=== PATIENT | female | born 1960 | race Caucasian/White ===

== ENCOUNTER 2016-05-01 21:18 | Emergency (ER) | payer SELFPAY ==
[2016-05-01 21:27] VITALS: TEMP 36.7; Ht 157.5 cm
[2016-05-01] MEDS ORDERED: OXYCODONE HCL IR 5 MG TAB (IMMEDIATE RELEASE) PO STA (22:18)
[2016-05-01] MEDS ORDERED: LEVO50TA PO (22:22)
[2016-05-01] MEDS ORDERED: MULT-513 PO (22:22)
--- NOTE | 2016-05-01 22:44 | DIAGNOSTIC IMAGING REPORT ---
LEFT KNEE 2 VIEWS CLINICAL HISTORY: Fall with left knee pain. FINDINGS: AP and crosstable lateral views of the left knee are obtained. No prior studies are available for comparison at the time of dictation. The skeletal structures appear osteopenic. There is a fracture through the mid pole of the patella with approximately 3.5 cm of distraction of the fragments. There is rotation of the inferior fragment. There is lipohemarthrosis and marked overlying soft tissue edema. No additional fracture is seen. The joint spaces of the medial and lateral compartment appear preserved. There are small lateral marginal osteophytes. A calcified fabella is incidentally noted. IMPRESSION: There is a distracted fracture through the mid pole of the patella with associated lipohemarthrosis and marked soft tissue edema as above. Electronically signed by: Arnold Mistry M.D. 05/01/2016 10:42 PM Dictated Date/Time: 05/01/2016 10:41 PM
[2016-05-01] MEDS ORDERED: OXYC1TAB3 PO (23:12)
[2016-05-01] MEDS ORDERED: OXYCODONE IR HOME PACK PO ONE (23:15)
[2016-05-01 23:25] VITALS: BP 103/57; PULSE 70; O2SAT 97
--- NOTE | 2016-05-02 00:04 | EMERGENCY ROOM VISIT NOTE ---
ED Visit Note First contact with patient: 21:42 CHIEF COMPLAINT: knee pain HISTORY OF PRESENT ILLNESS: This 56 yo patient presents to the emergency department with family who is Tristanian-speaking and requested that her granddaughter translates after sustaining an injury to the left knee after falling at [employer]. The patient denies any other injuries besides their knee. The patient + swelling or bruising. There is pain throughout the knee. They rate the pain as severe and 8/10. The patient states they are not able to walk on it. No numbness or tingling. No previous injuries to this knee. No ankle, foot or hip pain. REVIEW OF SYSTEMS: A 6 system review of systems was completed with positives and pertinent negatives listed in the HPI. ALLERGIES: none MEDICATIONS: Synthroid PMH: Thyroid disease SOCIAL HISTORY: No drug use PHYSICAL EXAM: Vital Signs: Reviewed Nurse's notes, vital signs stable. GENERAL : Pleasant female, no acute distress, but appears in pain, well-developed, well- nourished. MENTAL STATUS: Alert, oriented to person place and time, and cooperative. MUSCULOSKELETAL: The left knee is swollen. There is ecchymosis. There is joint effusion present. The patient is tender diffusely. There is joint line tenderness. Range of motion is limited to pain and obvious injury. Strength of the quads and hamstrings is unable to assess secondary to pain. Bartolo's and Anterior Drawer tests are unable to assess secondary severe injury. The foot and toes are warm and well-perfused. Dorsalis pedis pulse 2+. Sensation to pain and light touch is intact. Capillary refill less than 2 seconds. EMERGENCY DEPARTMENT COURSE: I examined the patient. X-rays of the left knee were reviewed by myself and read by radiology and reveal LEFT KNEE 2 VIEWS CLINICAL HISTORY: Fall with left knee pain. FINDINGS: AP and crosstable lateral views of the left knee are obtained. No prior studies are available for comparison at the time of dictation. The skeletal structures appear osteopenic. There is a fracture through the mid pole of the patella with approximately 3.5 cm of distraction of the fragments. There is rotation of the inferior fragment. There is lipohemarthrosis and marked overlying soft tissue edema. No additional fracture is seen. The joint spaces of the medial and lateral compartment appear preserved. There are small lateral marginal osteophytes. A calcified fabella is incidentally noted. IMPRESSION: There is a distracted fracture through the mid pole of the patella with associated lipohemarthrosis and marked soft tissue edema as above. Electronically signed by: Arnold Mistry M.D. 05/01/2016 10:42 PM I consulted with orthopedics, Dr. Cam, and recommends knee immobilizer, nonweightbearing and will see the patient tomorrow in clinic. He recommends discharge home. The patient was placed in a knee immobilizer under my direction and the position was satisfactory. The patient was instructed on the use of crutches. Patient was advised that she needs to see orthopedics tomorrow for her extensive knee injury. Patient had no other injuries noted. She had no other complaints. She was neurovascularly and neurologically intact. The patient was discharged home in good condition. DIAGNOSIS: Left patella fracture, fall DISCHARGE INSTRUCTIONS: As below Current/Historical Medications Scheduled Levothyroxine Sodium (Synthroid), 50 MCG PO DAILY Multivitamins/Minerals (Mvi With Minerals), 1 TAB PO DAILY Scheduled PRN Oxycodone Immediate Rel Tab (Roxicodone Ir), 1-2 TAB PO Q4H PRN for Severe Pain Allergies Coded Allergies: No Known Allergies (Unverified Allergy, Mild, 03/12/08) Vital Signs Date Time Temp Pulse Resp B/P Pulse Ox O2 Delivery O2 Flow Rate FiO2 05/01/16 23:25 70 18 103/57 97 05/01/16 21:27 36.7 80 18 139/76 100 Room Air Medications Administered Medications (Trade) Dose Ordered Sig/Janel Route Start Time Stop Time Status Last Admin Dose Admin Oxycodone HCl (Roxicodone Immediate Rel Tab) 5 mg NOW STAT PO 05/01/16 22:18 05/01/16 22:19 DC 05/01/16 22:34 5 MG Oxycodone HCl (Roxicodone Immediate Rel 5MG Home Pack) 1 homepack UD ONCE PO 05/01/16 23:15 05/01/16 23:16 DC 05/01/16 23:39 1 HOMEPACK Departure Information Impression Primary Impression: Fracture of patella, left, closed Additional Impression: Fall Dispostion Home / Self-Care Condition GOOD Prescriptions Oxycodone Immediate Rel Tab (ROXICODONE IR) 5 Mg Tab 1-2 TAB PO Q4H Y for Severe Pain, #20 TAB Prov: Shanae De Santiago ., BETHANIE 05/01/16 Referrals Dwaine Cam D.O. Forms HOME CARE DOCUMENTATION FORM, Work Instructions, Return To Work: 2 days IMPORTANT VISIT INFORMATION Patient Instructions My [facility], ED Fx Patella Additional Instructions DO NOT drive, drink alcohol, operate machinery, or perform dangerous activities today. You were given medications in the ER that can affect your ability to safely function or operate a vehicle. Oxycodone (OxyIR) 5mg: Take 1-2 pills every four hours for breakthrough pain. Avoid alcohol, operating machinery or dangerous equipment, working on ladders or roofs, DRIVING, or situations where being under the influence may be dangerous. It is recommended to use an nhna-dzn-vihhdwq stool softener such as Colace, 100mg twice daily while taking this medication to avoid constipation. NO MOTRIN or any NSAIDs until cleared by ORTHO. Acetaminophen(Tylenol) may be used for fever or pain. Use 1000mg every six hours as needed. Avoid using more than 3000mg in a 24 hour period. This medication can be taken if you need to drive, work, or perform activities which may be dangerous when taking narcotic pain medication. Ice compresses for 20 minutes at a time four times daily for 2-3 days. Use the crutches as instructed. REMAIN NONE WEIGHT BEARING UNTIL CLEARED BY ORTHO. Rest and elevate your injury. Wear knee immobilizer. Do not have it so tight that cannot feel your foot. Continue current medications. Return to the ER immediately for any numbness, tingling, severe pain, extreme swelling in the extremity or as needed. Call Orthopedics tomorrow to arrange follow up for your injury. Work Instructions Return To Work: 2 days
== END 2016-05-01 23:25 | disposition home or self-care (01) ==
LOC: C.EDB 21:19 → C.EDD 23:25
DX: S82.002A Unspecified fracture of left patella, initial encounter for closed fracture (principal); W19.XXXA Unspecified fall, initial encounter; Y92.512 Supermarket, store or market as the place of occurrence of the external cause; E07.9 Disorder of thyroid, unspecified; Z79.899 Other long term (current) drug therapy

== ENCOUNTER 2016-05-08 09:30 | Observation (INO) | payer SELFPAY ==
--- NOTE | 2016-05-03 13:52 | HISTORY & PHYSICAL EXAMINATION ---
DATE OF ADMISSION: 05/08/2016 CHIEF COMPLAINT: Left knee pain. HISTORY OF PRESENT ILLNESS: Maritza is a 56-year-old female patient of Dr. Chopra that sustained an injury to her left knee after falling directly on her anterior aspect of her left knee. She has never injured this extremity in the past. She admits to pain, swelling and inability to perform a straight leg raise. Denies any numbness or tingling in her foot. Denies any calf pain. PAST MEDICAL HISTORY: Hypothyroidism. PAST SURGICAL HISTORY: 1. Cholecystectomy. 2. Ectopic . 3. Peritonitis as an infant requiring surgical intervention. FAMILY HISTORY: Noncontributory. SOCIAL HISTORY: The patient lives at home in a safe environment. She does not speak Estonian very well. She did require a family friend and company controller today during today's history and physical preoperatively. She denies any alcohol, tobacco or illegal drug use. MEDICATIONS: Levothyroxine 50 mcg daily. ALLERGIES: No known drug allergies. REVIEW OF SYSTEMS: The patient denies headache, chest pain, shortness of breath, fevers, chills or night sweats. PHYSICAL EXAMINATION: GENERAL: The patient is alert and oriented x3 female. She is in no acute distress, pleasant, appears her currently stated age. CARDIAC: Regular rate and rhythm. S1 greater than S2. No murmurs, rubs or gallops appreciated. RESPIRATORY: Lungs are clear to auscultation bilaterally all lung rosario. No rales, rhonchi or wheezing. GASTROINTESTINAL: Abdomen is soft, nontender, nondistended. Normoactive bowel sounds all 4 quadrants. SKIN: Exam of the patient's left knee reveals significant amount of swelling over the anterior aspect of the left knee, there is some minor ecchymotic change surrounding the joint as well. There is no significant openings in the skin or erythema. Several small abrasions that are not full thickness or currently draining. NEUROVASCULAR: Distal pulses of the left lower extremity are +2. Capillary refill is under 2 seconds. Has good sensation with light touch. Toes freely mobile. +5 strength with dorsi and plantar flexion. MUSCULOSKELETAL: The left knee, the patient has notable deformity and tenderness when palpating over the patella. There is a large defect when palpating the mid body of the patella. She is unable to perform a straight leg raise secondary to her compromised extensor mechanism, although patient is guarding. She overall appears to have stable cruciate and collateral ligaments. The joint lines are overall nontender. She does not have any cystic changes or masses in the popliteal fossa. Her hip and ankle are atraumatic. Calf is supple, nontender. RADIOGRAPHS: The patient's left knee reveals a transverse fracture of the mid body of the patella of the left knee, is noted on AP and more so better on lateral view. No other significant degeneration or pathology of the left knee otherwise. IMPRESSION: Left patella fracture. PLAN: Maritza will undergo an open reduction and internal fixation of her left patella fracture on 05/08/2016 at the [facility] by Dr. Hudson from [facility]. She will obtain a preoperative EKG, CBC, and PRP at [facility]'s outpatient lab on 05/03/2016. Maritza will begin utilizing Lovenox 40 mg injection subcutaneously daily until the day of her surgery for DVT prophylaxis. She was also given a prescription for Percocet for postoperative pain control. The patient already has crutches and is well aware of how to use these. The patient will utilize a knee immobilizer. She can bear weight in full extension regarding the left lower extremity. Maritza will follow up with Dr. Hudson 2 weeks after surgery for postoperative evaluation and suture removal. Will continue with DVT prophylaxis postoperatively. Ice and elevate accordingly. Physical therapy will begin 4-5 days after surgery and an order was provided. Any other questions or concerns, notify [facility] at [phone]. [facility]
[2016-05-03 16:15] VITALS: BMI 22.0
[~2016-05-08] VITALS: Ht 157.5 cm; Wt 56.4 kg
[~2016-05-08 09:30] MED LIST: CEFAZOLIN 1000MG/55 ML D5W 55 ML IV SCH; LACTATED RINGER'S 1000ML IV SCH; LEVO50TA PO; MULT-513 PO
[2016-05-08 09:47] VITALS: BP 114/74; PULSE 91; TEMP 36.7; O2SAT 97; Ht 157.5 cm; Wt 56.4 kg
[2016-05-08] MEDS ORDERED: HYDROmorphone INJ 2 MG/ML SYR/VIAL IV PRN (14:45)
[2016-05-08] MEDS ORDERED: EpHEDrine SULFATE INJ 50 MG/ML AMP IV PRN (14:45)
[2016-05-08] MEDS ORDERED: PHENYLEPHRINE 100MCG/ML 5ML SYR IV PRN (14:45)
[2016-05-08] MEDS ORDERED: ONDANSETRON INJ 2 MG/ML 2 ML VIAL IV PRN ×3 (14:45→20:00)
[2016-05-08] MEDS ORDERED: ATROPINE SULFATE 0.1 MG/ML 5ML SYR IV PRN ×2 (14:45→18:00)
--- NOTE | 2016-05-08 14:53 | History & Physical Bridge Note ---
H&P Re-Evaluation Bridge Note: I have examined the patient, reviewed the History & Physical and in the interval since the performance of the History & Physical I have noted the following changes of clinical significance: No changes noted
[2016-05-08] MEDS ORDERED: KETOROLAC TROMETHAMINE 30 MG/ML VIAL IV. PRN ×2 (18:00→20:00)
[2016-05-08] MEDS ORDERED: MIDAZOLAM HCL 1 MG/ML 2ML VIAL ONE (18:01)
[2016-05-08] MEDS ORDERED: FENTANYL CITRATE INJ 50 MCG/1 ML 2 ML VIAL ONE (18:01)
[2016-05-08] MEDS ORDERED: ONDANSETRON INJ 2 MG/ML 2 ML VIAL ONE (18:32)
[2016-05-08] MEDS ORDERED: PROPOFOL IV EMULSION 10 MG/ML 20 ML VIAL IV ONE (18:32)
[2016-05-08] MEDS ORDERED: LIDOCAINE HCL 2% 2 ML VIAL (20MG/ML) ONE (18:32)
[2016-05-08] MEDS ORDERED: DEXAMETHASONE SOD INJ 4 MG/ML VIAL ONE (18:32)
[2016-05-08] MEDS ORDERED: LABETALOL HCL IV 5 MG/ML 20ML ONE ×2 (19:43→20:10)
--- NOTE | 2016-05-08 19:49 | DIAGNOSTIC IMAGING REPORT ---
INTRAOPERATIVE FLUOROSCOPIC IMAGES OF THE LEFT KNEE CLINICAL HISTORY: LT ORIF PATELLA COMPARISON STUDY: Left knee radiographs May 01, 2016. Fluoroscopy time: 38 seconds. FINDINGS: 4 fluoroscopic images demonstrate internal fixation of the patellar fracture with screws and wire. Fracture alignment has markedly improved and now appears near anatomic. There are no unexpected radiopaque foreign bodies. IMPRESSION: Expected findings following left patellar internal fixation. Electronically signed by: Terrance Waters M.D. 05/08/2016 7:47 PM Dictated Date/Time: 05/08/2016 7:45 PM
--- NOTE | 2016-05-08 19:54 | [facility] Post Operative Brief Note ---
Immediate Operative Summary Operative Date May 08, 2016. Pre-Operative Diagnosis Left Patella Fracture Post-Operative Diagnosis Same as preop Procedure(s) Performed orif Surgeon Dr. Hudson Textile Slitting Machine Operator Surgeon(s) Bull Hsieh PA-C Estimated Blood Loss 50ML Findings patella fracture Specimens None Drains 0 Anesthesia LMA Complication(s) None Disposition Recovery Room / PACU
[2016-05-08] MEDS ORDERED: ALUMINUM/MAGNESIUM/SIMETH (MAALOX MAX) 30 ML UDC PO PRN (20:00)
[2016-05-08] MEDS ORDERED: METOCLOPRAMIDE HCL INJ 5 MG/ML 2 ML VIAL IV PRN (20:00)
[2016-05-08] MEDS ORDERED: HYDROmorphone INJ 0.5 MG/0.5 ML SYR IV PRN (20:00)
[2016-05-08] MEDS ORDERED: LIDOCAINE/EPINEPHRINE 1% 20 ML VIAL INJ ONE (20:06)
[2016-05-08] MEDS ORDERED: BUPIVACAINE 0.5% W/EPI 1:200,000 INJ ONE (20:07)
[2016-05-08] MEDS ORDERED: LABETALOL HCL IV 5 MG/ML 20ML IV PRN (20:15)
[2016-05-08] MEDS: FENTANYL CITRATE INJ 50 MCG/1 ML 2 ML VIAL IV PRN ×2 (20:15→20:20)
[2016-05-08] MEDS ORDERED: SENNA 8.6 MG TAB PO SCH (21:00)
--- NOTE | 2016-05-08 22:03 | Anesthesiology Progress Note ---
Anesthesia Post Op Note Date & Time May 08, 2016 at 22:02 Vital Signs Pain Intensity: 1 Vital Signs Past 12 Hours Date Time Temp Pulse Resp B/P Pulse Ox O2 Delivery O2 Flow Rate FiO2 05/08/16 20:40 36.8 68 16 129/77 99 Nasal Cannula 3 05/08/16 20:30 66 16 132/84 99 Nasal Cannula 3 05/08/16 20:20 68 16 154/85 99 Nasal Cannula 3 05/08/16 20:10 72 16 150/88 100 Mask 10 05/08/16 20:00 37 70 16 147/95 100 Mask 10 Notes Mental Status: alert / awake / arousable, participated in evaluation Pt Amnestic to Procedure: Yes Nausea / Vomiting: adequately controlled Pain: adequately controlled Airway Patency, RR, SpO2: stable & adequate BP & HR: stable & adequate Hydration State: stable & adequate Anesthetic Complications: no major complications apparent
[2016-05-08] MEDS: D5W AND 1/2NSS + 20MEQ KCL 1,000 ML IV SCH (22:16)
[2016-05-08] MEDS: DOCUSATE SODIUM 100 MG CAP PO SCH (22:16)
[2016-05-08] MEDS: ASPIRIN 325 MG ECTAB PO SCH (22:17)
[2016-05-08] MEDS: OXYCODONE/ACETAMINOPHEN 5-325 TAB PO PRN (22:20)
--- NOTE | 2016-05-08 22:25 | OPERATIVE REPORT ---
DATE OF OPERATION: 05/08/2016 PREOPERATIVE DIAGNOSIS: Left knee patellar fracture. POSTOPERATIVE DIAGNOSIS: Left knee same. PROCEDURE: Left knee patellar open reduction internal fixation. SURGEON: Dr. Hudson. STADIUM MANAGER: Simon Hsieh PA-C HISTORY OF PRESENT ILLNESS: This 56-year-old white female presented with complaints of left knee pain after falling directly on to her left knee on 05/02/2016. Preoperative x-rays were obtained. The patient elected to proceed with surgical intervention after being educated about potential risks and outcomes. OPERATION: The patient was taken to the operating room where she was given general anesthetic. She was prepped and draped in the usual sterile fashion. Please see Dr. Hudson's operative report for specifics of the procedure. I was present for the entire case from initial patient positioning through final wound closure. Assistance was provided in tissue retraction, hemostasis, fracture reduction, hardware placement, and final wound closure. The patient was taken to recovery in ICU in satisfactory condition. I attest to the content of the Intraoperative Record and any orders documented therein. Any exceptio ns are noted below.
--- NOTE | 2016-05-08 22:29 | OPERATIVE REPORT ---
DATE OF OPERATION: 05/08/2016 PREOPERATIVE DIAGNOSIS: Left patella fracture. POSTOPERATIVE DIAGNOSIS: Same. PROCEDURE: ORIF left patella with screws and tension band. SURGEON: Dr. Hudson. VENEER PRODUCTION MACHINE OPERATOR: Simon Hsieh PA-C. No resident or fellow available. ANESTHESIA: General. INDICATIONS OF PROCEDURE: The patient is a 56-year-old female 1 week status post fall resulting in a left patellar fracture. This is an uncomminuted straight transverse mid patellar fracture with significant displacement. Treatment options, risks and benefits were discussed and she elected to proceed with recommended surgery. PROCEDURE IN DETAIL: Informed consent was obtained, the patient identified as Maritza Gay, she identified the operative site as the left knee and I marked it with my initials. A preop surgical time out was performed. A preop dose of IV antibiotics was given. She was taken to the operating room, positioned supine on the operating room table. A tourniquet was applied to the left thigh. The leg was prescrubbed and then prepped and draped in usual sterile fashion. DVT prophylaxis intraoperatively with mechanical devices, postoperatively with aspirin or early mobility and mechanical devices. The exam under anesthesia revealed range of motion easily 0-90. Posterior drawer intact, Bartolo was slightly lax, her cruciates were intact, the skin was intact. She had yellowish and bluish discoloration consistent with resolving ecchymosis. There was a positive skin wrinkles present. The limb was exsanguinated with the Esmarch, tourniquet inflated to 225 mmHg. A midline incision was made at about 15 cm in length. Full thickness flaps were created, the extensor mechanism was largely disrupted as were the medial and lateral retinaculum. Minor comminution and inferior lateral was removed. The fracture site was exposed and cleaning of soft tissue along its margins, hematoma was evacuated from the knee. The articular surfaces showed grade 2 chondrosis fairly diffusely, particularly over the distal fragment. There were no full-thickness defects, but at least diffuse grade 2 and 3 change, more grade 2 proximally and grade 2 and 3 distally. The fracture was then anatomically aligned based upon radiographic imaging and palpation as well as the fracture line held with a clamp. Two guidewires for the 4.5 cannulated screws were inserted distal to proximal and placed in the center of the patella at the junction of the middle and lateral thirds. Length was selected with a depth gauge. The screws were overreamed and screws of proper length were inserted and exchanged as necessary. This provided secured anatomical fixation confirmed fluoroscopically. An 18 gauge tension band wire was then passed through the screws and over the top of the patella and tightened. After ranging the knee 0-120, the knee was then retensioned. Fluoroscopic images confirmed positioning of the hardware, reduction of the fracture. Tourniquet was let down, meticulous hemostasis was performed. The retinaculum medial and lateral was repaired with interrupted #1 Vicryl. The subcutaneous tissues were closed with 2-0 Vicryl and lou on the skin. The 0.5% Marcaine and 1% lidocaine, both with epinephrine were injected into the skin. Leg was cleaned with wet and dry sponges. A soft sterile dressing was applied along with full length Bradley wrap and a knee immobilizer. The patient was then awakened from anesthesia without difficulty, taken to recovery room in stable condition. There were no specimens or complications. Counts were correct at the end of case. Blood loss was approximately 25 mL. At the conclusion of the operation, I spoke to patient's daughter by phone and informed her of my findings. The patient will be admitted to the hospital for observation overnight. She will receive IV antibiotics. She can weightbear as tolerated in a knee brace using a walker. She will see PT tomorrow and will be able to range her knee 0-60. Comfortably we could bend it to 90 after the conclusion of the operation. I attest to the content of the Intraoperative Record and any orders documented therein. Any exceptio ns are noted below.
[2016-05-09 00:42] VITALS: BP 119/73; PULSE 77; TEMP 36.8; O2SAT 100
[2016-05-09 04:00] VITALS: BP 112/73; PULSE 77; TEMP 36.4; O2SAT 100
[2016-05-09] MEDS: CEFAZOLIN IV 1,000 MG in DEXTROSE 5% 50ML 50 ML IV SCH ×2 (04:20→11:24)
[2016-05-09] MEDS ORDERED: LEVOTHYROXINE 50 MCG TAB PO SCH (06:00)
[2016-05-09 06:22] VITALS: O2SAT 100
[2016-05-09 07:04] VITALS: BP 127/81; PULSE 81; TEMP 37; O2SAT 97
--- NOTE | 2016-05-09 08:34 | Orthopedic Progress Note ---
Orthopedic Progress Note Date of Service May 09, 2016. Subjective Post OP Day: 1 Reports: feeling well, pain controlled w PO medications, Denies: SOB, calf pain , chest pain, complaints, light headedness, nausea / vomiting, using MEDICAL REVIEWER Objective calves soft nontender, N/V intact, capillary refill less than 2 sec., dressing C /D/I, incision C/D/I, A&O x3, toes mobile, CMS intact Date Time Temp Pulse Resp B/P Pulse Ox O2 Delivery O2 Flow Rate FiO2 05/09/16 07:04 37.0 81 16 127/81 97 Room Air 05/09/16 06:22 100 Room Air 05/09/16 04:00 36.4 77 16 112/73 100 Nasal Cannula 2.0 05/09/16 00:42 36.8 77 16 119/73 100 Nasal Cannula 2.0 05/09/16 00:30 Nasal Cannula 3.0 05/08/16 20:55 Nasal Cannula 3.0 05/08/16 20:40 36.8 68 16 129/77 99 Nasal Cannula 3 05/08/16 20:30 66 16 132/84 99 Nasal Cannula 3 05/08/16 20:20 68 16 154/85 99 Nasal Cannula 3 05/08/16 20:10 72 16 150/88 100 Mask 10 05/08/16 20:00 37 70 16 147/95 100 Mask 10 05/08/16 09:47 36.7 91 18 114/74 97 Room Air Assessment & Plan Assessment: Day 1 s/p ORIF of Left Patella Plan: PT/OT today (may do light ROM from 0-60 degrees) WBAT on Left LE with immobilizer and walker Ice with EZ wrap as directed DVT Prophylaxis with Lovenox, ANN stocking and SCD Dressing changed this AM Already provided with prescriptions for Lovenos, PT (at [facility] on 05/11/16 @ 11 with [facility]) and PO pain meds. Plan for discharge later today. F/u with Dr. Hudson as scheduled (05/22/16 @ 800). Will discuss findings with Dr. Hudson. Discharge Planning Discharge Planning: home with oppt Pain Management: Percocet DVT Prophylaxis: TEDs, SCDs, Lovenox Therapy: Physical Therapy, Occupational Therapy
--- NOTE | 2016-05-09 08:43 | Discharge Instructions ---
Discharge Instructions Admission Reason for Admission: Left Patella Fracture Discharge Discharge Diagnosis / Problem: ORIF Left patellar fracture Discharge Goals Goal(s): Decrease discomfort, Improve function, Increase independence Activity Recommendations Activity Limitations: as noted below Lifting Limitations: gradually increase as tolerated Exercise/Sports Limitations: until after follow-up appointment May Resume Sexual Activity: after follow-up appointment Shower/Bathe: may shower/bathe in 3 days, keep incision dry Weightbearing Status: Left weightbearing (as tolerated with use of immobilizer and walker) . Instructions / Follow-Up Instructions / Follow-Up New Medicine: * You will likely be taking one or more of these medications: 1. Lovenox - You will be on Lovenox for 3 wks after surgery to prevent blood clots. Aspirin, 81 mg is OK. 2. Percocet - Take, as directed, when you need it, every four to six hours to control your pain. 3. Colace & Senokot - Take to prevent constipation which can be caused by narcotics. These can be bought [id number] at the pharmacy * The most common side effects of pain medicine and iron are nausea and constipation. If nausea or constipation is too much of a problem or if you have any questions about your new medicines or doses, call [facility] at . We will try to help you manage these issues. VERY IMPORTANT TO READ AND REVIEW" Blood Clots and Blood Thinning Medicine: * You are given Lovenox during the immediate post-operative period to lessen the risk of blood clots forming in your legs and/or lungs. * At discharge, you should understand your dose and take it all at the same time every day, preferably after dinner. Physical Therapy: * Do your physical therapy at home. These are the exercises you learned while in the hospital (quad sets, leg raises, calf pumps, gluteal squeezes, knee bending, and heel props.) You should do these exercises 3-4 times per day. * You will do PT at [facility] as an outpatient rehab. You should do rehab with the therapist 2-3 times per week. You should do therapy on your own daily. * You may bear full weight on your leg with immobilizer and walker unless otherwise advised. Home Exercise: * You were shown a series of exercises (heel props, heel slides, etc.) in the hospital. Do these exercises three to four times each day including the exercises you were shown in physical therapy. Walking: * You may be up for short periods of time. Standing and walking for 1-2 hours at a time is usually okay. You should not stand or walk for excessive periods of time as this may cause increased pain and swelling. SELF CARE INSTRUCTIONS AFTER TOTAL KNEE REPLACEMENT A. You may need to continue a physical therapy program after discharge from the hospital. There are several options available to you. Your doctor will assist you in selecting the best one for you. 1. An out-patient facility 2 to 3 times a week for therapy or home therapy. 2. Continue working on all exercises taught to you in the hospital. Your goals should be to increase bending of your knee to 60 degrees and beyond and to fully straighten your knee. B. Your therapist will notify you when you are able to progress from a walker to a cane. C. Wear TEDS as much as possible.~ They may be removed at night for laundering. D. Do not place a pillow behind your knee when resting. A pillow at your ankle is okay. E. Ice your knee 15-20 minutes every 2-3 hours and elevate it above the level of your heart. F. You may shower on the fourth day after surgery using regular soap and water. Do not submerge until the wound is completely healed (approximately 2 weeks ). Until the fourth day after surgery, cover the incision/bandage with a bag or plastic wrap. G. Anyone who is touching your surgical incision area should wash their hands and wear gloves. H. Keep your incision covered with gauze pads under the ANN hose until it is dry. VERY IMPORTANT TO READ AND REVIEW A. There are a few signs you need to watch for after you are home. Call [facility] if you notice any of the followin. Increased severe knee pain. Some pain is expected especially when you exercise. 2. Increased swelling in your leg or knee; pain or swelling of the calf muscle in either lower leg. 3. Any fluid drainage from the incision. 4. Shortness of breath or chest pain. 5. Numbness and tingling in the surgical extremity B. Please call [facility] at if you have any concerns or questions about your operation or recovery. The doctor or his nurse will return your call promptly. Call your doctor if: * Temperature above 101 degrees F. * Pain not relieved by pain medicine ordered. * Increased drainage or redness from incision. * Notify your doctor with any questions or concerns. Follow-up Visit: You will follow-up with Dr. Hudson 10-14 days after surgery. The office number is . Current Hospital Diet Patient's current hospital diet: Regular Diet Discharge Diet Recommended Diet: Regular Diet Procedures Procedures Performed: orif Pending Studies Studies pending at discharge: no Laboratory Results Lipid Panel Test 03/05/16 16:22 Range/Units Triglycerides Level 364 H 0-150 mg/dl Cholesterol Level 260 H 0-200 mg/dl HDL Cholesterol 74 mg/dl Cholesterol/HDL Ratio 3.5 LDL Cholesterol, Calculated 113 mg/dl Medical Emergencies . Who to Call and When: Medical Emergencies: If at any time you feel your situation is an emergency, please call 911 immediately. . Non-Emergent Contact Non-Emergency issues call your: Primary Care Provider Call Non-Emergent contact if: temperature is above 101.5, your pain is not controlled, wound has increased drainage, wound has increased redness, wound has increased pain, you have any medication questions . "Provider Documentation" section prepared by Kamari Scott. VTE Core Measure Inpt VTE Proph given/why not?: Enoxaparin (Lovenox)JAISON, T.EPete Dickinson
[2016-05-09] MEDS: D5W AND 1/2NSS + 20MEQ KCL 1,000 ML IV SCH (08:46)
[2016-05-09] MEDS: ASPIRIN 325 MG ECTAB PO SCH (08:47)
[2016-05-09] MEDS: DOCUSATE SODIUM 100 MG CAP PO SCH (08:47)
--- NOTE | 2016-05-09 09:43 | Anesthesiology Progress Note ---
Anesthesia Post Op Note Date & Time May 09, 2016 at 09:42 Vital Signs Pain Intensity: 3.0 Vital Signs Past 12 Hours Date Time Temp Pulse Resp B/P Pulse Ox O2 Delivery O2 Flow Rate FiO2 05/09/16 08:40 Room Air 05/09/16 07:04 37.0 81 16 127/81 97 Room Air 05/09/16 06:22 100 Room Air 05/09/16 04:00 36.4 77 16 112/73 100 Nasal Cannula 2.0 05/09/16 00:42 36.8 77 16 119/73 100 Nasal Cannula 2.0 05/09/16 00:30 Nasal Cannula 3.0 Notes Mental Status: alert / awake / arousable, participated in evaluation Pt Amnestic to Procedure: Yes Nausea / Vomiting: adequately controlled Pain: adequately controlled Airway Patency, RR, SpO2: stable & adequate BP & HR: stable & adequate Hydration State: stable & adequate Anesthetic Complications: no major complications apparent
[2016-05-09 09:48] VITALS: BP 127/81; PULSE 81; TEMP 37; O2SAT 97
[2016-05-09] MEDS: OXYCODONE/ACETAMINOPHEN 5-325 TAB PO PRN (09:57)
[2016-05-09 11:25] VITALS: BP 112/73; PULSE 78; TEMP 37; O2SAT 97
[2016-05-09 12:10] LABS: MEAN CELL VOLUME 88.7 fL (80-100); MEAN CORPUSCULAR HEMOGLOBIN 30.9 pg (25-34); MEAN CORPUSCULAR HGB CONC 34.8 g/dl (32-36); MEAN PLATELET VOLUME 8.7 fL (7.4-10.4); PLATELET COUNT 366 K/uL (130-400); RED BLOOD COUNT 3.27 M/uL (4.2-5.4); WHITE BLOOD COUNT 9.33 K/uL (4.8-10.8)
[2016-05-09 12:20] LABS: INR 1.1 (0.9-1.1); PROTHROMBIN TIME (PATIENT) 11.6 SECONDS (9.0-12.0)
[2016-05-09 12:27] LABS: CREATININE 0.73 mg/dl (0.60-1.20)
[2016-05-09] MEDS ORDERED: ENOXAPARIN 40 MG/0.4 ML SYR SQ SCH (14:00)
--- NOTE | 2016-05-14 11:40 | DISCHARGE SUMMARY ---
ADMISSION DIAGNOSIS: Left patella fracture. DISCHARGE DIAGNOSIS: Same. PROCEDURE: ORIF, left patella. SURGEON: Dr. Alexis Hudson. BRIEF HISTORY: The patient is a 56-year-old female status post fall resulting a transverse left patella fracture. Surgery was recommended. HOSPITAL COURSE: The patient was admitted after surgery. She had surgery done late in the day was admitted a 23-hour observation overnight. DVT prophylaxis with Lovenox, a routine course to postop IV antibiotics, physical therapy was consulted, and she could weightbear as tolerated. She was neurovascularly intact. She had no problems relative to surgery or her hospital stay. DISCHARGE INSTRUCTIONS: She is discharged home in good condition. She is to follow up with Dr. Hudson, approximately 2 weeks after surgery. She is to elevate, ice, weightbear as tolerated with crutches/walker and a knee immobilizer. She can do things like a straight leg raise and knee flexion, initially 0-45, quadriceps. If there are any problems with pain, fever, swelling, numbness or any other issues, please contact the office or go to the Emergency Room. Medication hamilton, she will continue her regular medicines, stool softener, Percocet for pain and Lovenox for DVT prophylaxis.
== END 2016-05-09 16:08 | disposition home or self-care (01) ==
LOC: ENRESERVDT → ENRESERVTM → C.ACU 09:30 → C.3E 19:59
PROVIDERS: ADMIT Physical Medicine & Rehabilitation Sports Medicine; ATTEND Physical Medicine & Rehabilitation Sports Medicine
DX: S82.002A Unspecified fracture of left patella, initial encounter for closed fracture (principal); W19.XXXA Unspecified fall, initial encounter; E03.9 Hypothyroidism, unspecified; Z90.49 Acquired absence of other specified parts of digestive tract

== ENCOUNTER 2016-08-23 18:43 | Emergency (ER) | payer SELFPAY ==
[~2016-08-23] VITALS: Ht 160 cm; Wt 57.2 kg
[~2016-08-23 18:43] MED LIST changes: -CEFAZOLIN 1000MG/55 ML D5W 55 ML IV SCH; -LACTATED RINGER'S 1000ML IV SCH
[2016-08-23 18:47] VITALS: Ht 160 cm; Wt 57.2 kg
[2016-08-23] MEDS ORDERED: SILVER NITR/POTASSIUM NITRATE APPLICATOR ONE (19:10)
[2016-08-23] MEDS ORDERED: ACETAMINOPHEN 500 MG TAB PO STA (19:17)
[2016-08-23] MEDS ORDERED: DIPHTHERIA/TETANUS/PERTUSSIS 0.5 ML SYR/VIAL IM. ONE (19:30)
--- NOTE | 2016-08-23 19:44 | EMERGENCY ROOM VISIT NOTE ---
ED Visit Note First contact with patient: 18:59 CHIEF COMPLAINT: Right finger laceration HISTORY OF PRESENT ILLNESS: This 56-year-old female patient presents to the emergency department with her family member after cutting the lateral right second finger yesterday morning at 11 AM. The bleeding has not stopped, which is why she presents today. Denies weakness or numbness of the finger. The patient rates the pain as throbbing and 7/10. The patient denies any other injuries. The patient's Tetanus shot is not up to date. She is right-hand dominant. The patient does not take any blood thinners or daily aspirin. REVIEW OF SYSTEMS: A 6 system review of systems was completed with positives and pertinent negatives listed in the HPI. ALLERGIES: None MEDICATIONS: Levothyroxine, multivitamin PMH: Hypothyroidism SOCIAL HISTORY: PHYSICAL EXAM: Vital Signs: Reviewed Nurse's notes, vital signs stable. GENERAL : Awake and alert, in no acute distress but appears to be in mild pain, well- developed, well-nourished. SKIN: There is a 5 cm long skin avulsion on the lateral aspect of the right second finger. There is no foreign material in the wound and it looks clean. There is active bleeding from the distal end of the wound. No deep structures such as tendons, bones, or significant blood vessels are seen in the base of the wound. Normal strength and movement of the right second finger. Capillary refill less than 2 seconds. Normal sensation to light and sharp touch. EMERGENCY DEPARTMENT COURSE: I examined the patient. Verbal consent was obtained to perform the procedure. Using sterile technique the wound was cleansed with sterile normal saline and Betadine. The area was sterilely draped. The wound was copiously irrigated under pressure with sterile saline. The wound was explored and was as described above. Silver nitrate sticks applied to the area of bleeding, unsuccessful in stopping the bleeding. A pressure dressing was then applied to the patient's finger for approximately 7 minutes, after removal leading was noted to be stopped. A small piece of Surgicel dressing placed over the area of bleeding, the rest of the avulsion was covered with antibiotic ointment, and the finger was wrapped in sterile dressing. Finger splint applied by document image technician. The patient tolerated the procedure well. Hemostasis was achieved. The patient was given Tdap immunization. The patient was discharged home in good condition. Current/Historical Medications Scheduled Levothyroxine Sodium (Synthroid), 50 MCG PO QAM Multivitamins/Minerals (Mvi With Minerals), 1 TAB PO DAILY Allergies Coded Allergies: No Known Allergies (Unverified , 08/23/16) Vital Signs Date Time Temp Pulse Resp B/P Pulse Ox O2 Delivery O2 Flow Rate FiO2 08/23/16 19:55 37.0 94 18 131/83 99 08/23/16 18:47 37.0 94 18 131/83 99 Room Air Medications Administered Medications (Trade) Dose Ordered Sig/Janel Route Start Time Stop Time Status Last Admin Dose Admin Acetaminophen (Tylenol Tab) 1,000 mg NOW STAT PO 08/23/16 19:17 08/23/16 19:19 DC 08/23/16 19:40 1,000 MG Diphtheria/ Pertussis/Tetanus Vacc (Adacel Inj) 0.5 ml ONCE ONCE IM. 08/23/16 19:30 08/23/16 19:31 DC 08/23/16 19:41 0.5 ML Departure Information Impression Primary Impression: Avulsion of skin of finger without complication Dispostion Home / Self-Care Condition GOOD Referrals No Doctor, Assigned (PCP) Patient Instructions ED Wound Care, [facility] Additional Instructions Keep the dressing and splint in place for the next 24 hours. After that, you may carefully remove the dressing and wash the finger with soap and water. Keep the wound covered with antibiotic ointment and a dressing until fully healed. You may continue to take Tylenol as needed for pain. Please return to the ER immediately for any signs of infection, including redness, swelling, increasing pain, pus drainage, red streaking up the hand, fevers, or any other concerns. Problem Qualifiers Primary Impression: Avulsion of skin of finger without complication Encounter type: initial encounter Qualified Codes: S61.209A - Unspecified open wound of unspecified finger without damage to nail, initial encounter
[2016-08-23 19:55] VITALS: BP 131/83; PULSE 94; TEMP 37; O2SAT 99
== END 2016-08-23 19:57 | disposition home or self-care (01) ==
LOC: C.EDB 18:44 → C.EDD 19:57
DX: S61.210A Laceration without foreign body of right index finger without damage to nail, initial encounter (principal); W26.9XXA Contact with unspecified sharp object(s), initial encounter; E03.9 Hypothyroidism, unspecified; Z79.899 Other long term (current) drug therapy; Z23 Encounter for immunization